=== PATIENT | female | born 1935 | race American Indian/Alaskan Native ===

== ENCOUNTER 2022-04-13 13:02 | Emergency (ER) | payer MEDICARE, OTHER ==
[2022-04-13 13:29] VITALS: BP 157/84
--- NOTE | 2022-04-13 16:28 | Emergency Department Report ---
ED Eye Problem HPI - General Chief complaint: Eye Problems Stated complaint: EYES BURNING ITCHING BLURRED Time Seen by Provider: 04/13/22 15:30 Source: patient, family Mode of arrival: Ambulatory Limitations: Physical Limitation - History of Present Illness Initial comments: 86 yo F with h/o shingles in the past who now present with bilateral burning in her eyes for the last 5 days. Pt was seen at the [facility] on 04/10/22 and diagnosed with allergic conjunctivitis and started her on Patanol. Pt however says this has not help her burning sensation. No fever or chills reported. Pt denies any trauma or fall. Pt also denies any pressure in her eyes but burning. No other modifying or associated factors reported. The above history was given to me by patient daughter that was called on the phone by a family member in the exam room with patient. - Related Data Previous Rx's Medication Instructions Recorded Last Taken Type Polymyxin B Sulf/Trimethoprim 1 drop OP Q3HR 7 Days #1 drops NS 04/13/22 Unknown Rx [Polytrim Eye Drops [id number]/0.1%] Valacyclovir HCl [Valacyclovir] 1,000 mg PO TID 7 Days #21 tab NS 04/13/22 Unknown Rx Allergies Allergy/AdvReac Type Severity Reaction Status Date / Time No Known Allergies Allergy Unverified 04/13/22 13:24 ED Review of Systems ROS: Stated complaint: EYES BURNING ITCHING BLURRED Other details as noted in HPI Comment: All other systems reviewed and negative Eyes: eye discharge, other (redness and burning sensation) ED Past Medical Hx - Past Medical History Previous Medical History?: Yes Hx Hypertension: Yes Hx Arthritis: Yes (rheumatoid) Additional medical history: wound left leg, glaucoma, Hx of 3rd degree rm @ ger[facility] age - Surgical History Past Surgical History?: Yes Additional Surgical History: Osmin. knee replacement - Medications Home Medications: Home Medications Medication Instructions Recorded Confirmed Last Taken Type Polymyxin B Sulf/Trimethoprim 1 drop OP Q3HR 7 Days #1 drops NS 04/13/22 Unknown Rx [Polytrim Eye Drops [id number]/0.1%] Valacyclovir HCl [Valacyclovir] 1,000 mg PO TID 7 Days #21 tab NS 04/13/22 Unknown Rx ED Physical Exam - General Limitations: Physical Limitation General appearance: alert, in no apparent distress - Head Head exam: Present: atraumatic, normal inspection - Eye Eye exam: Present: conjunctival injection, periorbital swelling - ENT ENT exam: Present: normal exam, normal orophraynx, mucous membranes moist - Neck Neck exam: Present: normal inspection, full ROM. Absent: tenderness, meningismus - Respiratory Respiratory exam: Present: normal lung sounds bilaterally. Absent: respiratory distress, accessory muscle use - Cardiovascular Cardiovascular Exam: Present: regular rate, normal rhythm, normal heart sounds - GI/Abdominal GI/Abdominal exam: Present: soft, normal bowel sounds. Absent: distended, tenderness - Extremities Exam Extremities exam: Present: normal inspection, normal capillary refill. Absent: full ROM, tenderness, pedal edema, joint swelling - Back Exam Back exam: Absent: tenderness - Neurological Exam Neurological exam: Present: alert, oriented X3 - Psychiatric Psychiatric exam: Present: normal affect, normal mood - Skin Skin exam: Present: warm, normal color ED Course Vital Signs 04/13/22 13:24 Temperature 99.6 F Pulse Rate 80 Respiratory 18 Rate Blood Pressure 157/84 O2 Sat by Pulse 97 Oximetry - Reevaluation(s) Reevaluation #1: 04/13/22 16:32 here with burning sensation in both eyes x 5 days currently on Patanol with minimal improvement-- Noted with bilateral conjunctiva erythema with injection -- but with history of shingles-- this could be concerning for herpes conjunctiv al--and or glucoma we will go ahead and get the patient started on acyclovir--40 treatment of possible shingles and have this patient follow-up--with energy technician for evaluation for glaucoma since facility does not have Michael meter/pen to measure eyeball pressure-- Will also start antibiotics eyedrop Polytrim for the conjunctivitis. 04/13/22 16:49 Critical care attestation.: If time is entered above; I have spent that time in minutes in the direct care of this critically ill patient, excluding procedure time. ED Disposition Clinical Impression: History of shingles Conjunctivitis Qualifiers: Conjunctivitis type: unspecified Laterality: bilateral Qualified Code(s): H10.9 - Unspecified conjunctivitis Disposition: HOME / SELF CARE / HOMELESS Is pt being admited?: No Does the pt Need Aspirin: No Condition: Stable Instructions: How to Use Eye Drops and Eye Ointments Additional Instructions: Please call Dr Guy Loza your Opthamologist today and schedule a immediate follow up at [address] [place] [address] [address], [place] [address] at [phone] Take and complete your new medication as prescribed to help your symptoms Please do not hesitate to call or return to ED if your symptoms worsen Prescriptions: Polymyxin B Sulf/Trimethoprim [Polytrim Eye Drops [id number]/0.1%] 1 drop OP Q3HR 7 Days #1 drops NS Valacyclovir HCl [Valacyclovir] 1,000 mg PO TID 7 Days #21 tab NS Time of Disposition: 17:17
[2022-04-13] MEDS ORDERED: valACYclovir 500 MG TAB PO ONE (17:40)
== END 2022-04-13 17:31 | disposition home or self-care (01) ==
LOC: ED 13:02
DX: H10.9 Unspecified conjunctivitis (principal); B02.30 Zoster ocular disease, unspecified; I10 Essential (primary) hypertension; M06.9 Rheumatoid arthritis, unspecified; Z98.890 Other specified postprocedural states
CPT/HCPCS: 99282